=== PATIENT | male | born 1960 | race Caucasian/White ===

== ENCOUNTER 2021-06-12 20:06 | Observation (INO) | payer OTHER ==
[~2021-06-12] VITALS: Ht 170.2 cm; Wt 88.5 kg
[2021-06-12 20:54] LABS: HEMOGLOBIN 14.2 gm/dl (14.0-17.5); RED BLOOD COUNT 4.21 M/UL (4.20-5.50); WHITE BLOOD COUNT 7.8 K/UL (4.5-11.0)
[2021-06-12 21:39] LABS: BUN/CREATININE RATIO 19 (0-10)
[2021-06-13] MEDS ORDERED: ATORVASTATIN CA20 MG PO (09:58)
[2021-06-13] MEDS ORDERED: OMEPRAZOLE40 MG PO (09:58)
[2021-06-13] MEDS ORDERED: HYDROXYCHLOROQ200 MG PO (09:59)
[2021-06-13] MEDS ORDERED: ONE-A-DAY MEN'1 EACH PO (10:00)
[2021-06-13] MEDS ORDERED: COQ-10100 MG PO (10:00)
[2021-06-13] MEDS ORDERED: PROBIOTIC1 EAC3 PO (10:02)
[2021-06-13] MEDS ORDERED: GLUCOSAMINE CH1 EAC2 PO (10:03)
[2021-06-13] MEDS ORDERED: FLAXSEED OIL1000 M1 PO (10:04)
[2021-06-14] MEDS ORDERED: ASPIRIN EC81 MG PO (09:44)
[2021-06-14] MEDS ORDERED: MECLIZINE HCL25 MG PO (09:44)
== END 2021-06-14 10:58 | disposition home or self-care (01) ==
LOC: ER1 20:06 → MED SURG 4 06-13 02:04 → CDU 06-13 02:04 → MED SURG 4 06-13 12:00
PROVIDERS: ADMIT Internal Medicine
DX: R42 Dizziness and giddiness (principal); Z20.822 Contact with and (suspected) exposure to COVID-19; E78.5 Hyperlipidemia, unspecified; M06.9 Rheumatoid arthritis, unspecified; R79.89 Other specified abnormal findings of blood chemistry; Z79.899 Other long term (current) drug therapy
CPT/HCPCS: 70450; 70551; 80053; 82550; 82553; 82962; 84484; 85025; 93005; 96365; 96372; 96375; 96376; 99285; G0378; J1650; J2405; J2550; J3360; U0002